=== PATIENT | female | born 1985 | race American Indian/Alaskan Native ===

== ENCOUNTER 2017-07-09 20:56 | Emergency (ER) | payer OTHER ==
[2017-07-09 21:23] VITALS: BP 104/54
[2017-07-09 21:55] LABS: Hematocrit 27.3 % (30.3-42.9); Hemoglobin 8.3 gm/dl (10.1-14.3); Mean Corpuscular HGB Conc 30 % (30-34); Red Blood Count 4.98 M/mm3 (3.65-5.03)
[2017-07-09 22:03] LABS: Bacteria,Urine 2+ /HPF (Negative); Bilirubin,Urine NEG (Negative); Blood,Urine LG (Negative); Color,Urine Amber (Yellow); Hyaline Casts,Urine 2 /LPF; Mucus,Urine 1+ /HPF; Nitrite,Urine NEG (Negative)
[2017-07-09 22:06] LABS: Alanine Aminotransferase 8 units/L (7-56); Albumin 4.3 g/dL (3.9-5); BUN/Creatinine Ratio 18; Blood Urea Nitrogen 14 mg/dL (7-17); Calcium 8.8 mg/dL (8.4-10.2); Hemolysis Index 4
[2017-07-09 22:07] LABS: Mean Corpuscular Hemoglobin 17 pg (28-32); Mean Corpuscular Volume 55 fl (79-97); Platelet Count 275 K/mm3 (140-440); Red Cell Distribution Width 33.6 % (13.2-15.2)
[2017-07-09 22:54] LABS: Anisocytosis 3+; Band Neutrophils # (Manual) 0.2 K/mm3; Basophils % (Manual) 0 % (0.0-1.8); Hypochromasia 3+; Total Cells Counted 100
[2017-07-09 22:55] LABS: Poikilocytosis 3+; Tear Drop Cells 3+
[2017-07-09 22:58] LABS: Platelet Estimate Consistent w Auto; Schistocytes 1+
== END 2017-07-10 02:25 | disposition left against medical advice (07) ==
LOC: ED 20:56
DX: R10.9 Unspecified abdominal pain (principal); Z53.21 Procedure and treatment not carried out due to patient leaving prior to being seen by health care provider
CPT/HCPCS: 36415; 80053; 81001; 84703; 85007; 85025